=== PATIENT | female | born 1945 | race African-American/Black ===

== ENCOUNTER 2017-10-13 12:54 | Outpatient (CLI) | payer MEDICARE, MEDICAID ==
[2017-10-13] MEDS ORDERED: ISOVUE-370 76%-LOCM 1 ML ONE (16:11)
== END 2017-10-13 12:55 | disposition home or self-care (01) ==
LOC: BICCT 12:54
PROVIDERS: ATTEND Family Medicine
DX: R05 Cough (principal)
CPT/HCPCS: 71260

== ENCOUNTER 2018-02-06 13:47 | Outpatient (CLI) | payer MEDICARE, MEDICAID ==
[2018-02-06] MEDS ORDERED: ISOVUE-370 76%-LOCM 1 ML ONE (13:57)
== END 2018-02-06 13:48 | disposition home or self-care (01) ==
LOC: BICCT 13:47
PROVIDERS: ATTEND Family Medicine
DX: R63.4 Abnormal weight loss (principal); F17.200 Nicotine dependence, unspecified, uncomplicated; R53.83 Other fatigue; N28.1 Cyst of kidney, acquired; I70.0 Atherosclerosis of aorta; R93.421 Abnormal radiologic findings on diagnostic imaging of right kidney
CPT/HCPCS: 74178

== ENCOUNTER 2019-06-19 19:57 | Emergency (ER) | payer MEDICARE, MEDICAID ==
[2019-06-19 20:43] LABS: #Basophils 0.1 thou/uL (0.0-0.2); #Eosinphils 0.3 thou/uL (0.0-0.7); #Lymphocytes 2.4 thou/uL (1.20-3.40); #Monocytes 0.5 thou/uL (0.11-0.59); #Neutrophils 4.3 thou/uL (1.40-6.50); %Basophils 1.3 % (0.0-1.0); %Eosinophils 3.8 % (0.0-10.0); %Lymphocytes 31.7 % (21.0-51.0); %Monocytes 6.4 % (0.0-10.0); %Neutrophils 56.8 % (42.0-75.0); Hemoglobin 11.7 g/dL (12.0-16.0); Mean Corpuscular HGB CONC 35.3 g/dL (32.0-36.0); Mean Corpuscular Hemoglobin 29.8 pg (27.0-31.0); Mean Corpuscular Volume 84.5 fL (78.0-98.0); Mean Platelet Volume 8.3 fL (7.4-10.4); Platelet Count 306 thou/uL (130-400); RBC Distribution Width 12.4 % (11.5-14.5); Red Blood Cell (RBC) Count 3.91 mill/uL (4.20-5.40); White Blood Cell (WBC) Count 7.5 thou/uL (4.8-10.8)
--- NOTE | 2019-06-19 20:53 | RAD ---
PORTABLE CHEST: 06/19/19 HISTORY: Shortness of breath. COMPARISON: 04/21/17 study. Heart size is within normal limits. There are atherosclerotic changes of the aorta. The lungs are latonya ar of any infiltrative process. IMPRESSION: No active intrathoracic disease. POS: [facility]
[2019-06-19 21:05] LABS: ALT (SGPT) 7 U/L (8-55); AST (SGOT) 18 U/L (5-34); Albumin 4.1 g/dL (3.4-4.8); Alkaline Phosphatase 74 U/L (40-110); Anion Gap 18 mmol/L (10-20); BUN (Urea Nitrogen) 8 mg/dL (9.8-20.1); Bilirubin, Total 0.3 mg/dL (0.2-1.2); Calc. Creatinine Clearance 0 mL/min (70-130); Calcium 9.1 mg/dL (7.8-10.44); Carbon Dioxide 20 mmol/L (23-31); Chloride 106 mmol/L (98-107); Estimated GFR-MDRD 58; Globulin 3.3 g/dL (2.4-3.5); Glucose 120 mg/dL (83-110); Potassium 3.5 mmol/L (3.5-5.1); Protein, Total 7.4 g/dL (6.0-8.3); Sodium 140 mmol/L (136-145)
[2019-06-19] MEDS ORDERED: predniSONE 20 MG TAB ONE (21:13)
== END 2019-06-19 23:00 | disposition home or self-care (01) ==
LOC: ERS 19:57
DX: J44.1 Chronic obstructive pulmonary disease with (acute) exacerbation (principal); F17.210 Nicotine dependence, cigarettes, uncomplicated; I10 Essential (primary) hypertension; Z79.51 Long term (current) use of inhaled steroids; Z79.891 Long term (current) use of opiate analgesic; Z79.899 Other long term (current) drug therapy
CPT/HCPCS: 36415; 71045; 80053; 83880; 85025; 87804; 94640; J7512; J7620

== ENCOUNTER 2019-10-28 16:45 | Emergency (ER) | payer MEDICARE, MEDICAID ==
[2019-10-28 17:41] LABS: #Basophils 0.1 thou/uL (0.0-0.2); #Eosinphils 0.3 thou/uL (0.0-0.7); #Monocytes 0.5 thou/uL (0.11-0.59); #Neutrophils 3.8 thou/uL (1.40-6.50); %Eosinophils 3.9 % (0.0-10.0); %Lymphocytes 29.9 % (21.0-51.0); %Neutrophils 57.2 % (42.0-75.0); Hemoglobin 10.6 g/dL (12.0-16.0); Mean Corpuscular HGB CONC 33.4 g/dL (32.0-36.0); Mean Platelet Volume 7.3 fL (7.4-10.4); Platelet Count 564 thou/uL (130-400); RBC Distribution Width 13.1 % (11.5-14.5); Red Blood Cell (RBC) Count 3.67 mill/uL (4.20-5.40); White Blood Cell (WBC) Count 6.6 thou/uL (4.8-10.8)
[2019-10-28 17:51] LABS: Bacteria/HPF None Seen HPF (None Seen); Bilirubin Negative (Negative); Blood, Urine Negative (Negative); Clarity Clear (Clear); Glucose, Urine (Dipstick) Normal (Negative); Leukocyte 250 Leu/uL (Negative); Nitrite Negative (Negative); Protein, Urine (Dipstick) Negative (Neg-Trace); RBC/HPF 0-3 HPF (0-3); Squamous Epithelial 0-3 HPF (0-3); Urobilinogen Normal mg/dL (Less than 2); WBC/HPF 0-3 HPF (0-3)
[2019-10-28 17:59] LABS: ALT (SGPT) 12 U/L (8-55); AST (SGOT) 23 U/L (5-34); Albumin 3.7 g/dL (3.4-4.8); Alcohol 164 mg/dL (Less than 10); Alkaline Phosphatase 70 U/L (40-110); Anion Gap 16 mmol/L (10-20); BUN (Urea Nitrogen) 8 mg/dL (9.8-20.1); Bilirubin, Total 0.2 mg/dL (0.2-1.2); Calc. Creatinine Clearance 0 mL/min (70-130); Calcium 9.1 mg/dL (7.8-10.44); Carbon Dioxide 20 mmol/L (23-31); Chloride 104 mmol/L (98-107); Estimated GFR-MDRD 69; Globulin 3.8 g/dL (2.4-3.5); Glucose 89 mg/dL (83-110); Protein, Total 7.5 g/dL (6.0-8.3); Sodium 136 mmol/L (136-145)
[2019-10-28 18:01] LABS: Acetaminophen Less than 6.0 mcg/mL (10.0-30.0); Alcohol 162 mg/dL (Less than 10); CK (CPK) 105 U/L (29-168); Salicylate Less than 8.0 mg/dL (15.0-30.0)
[2019-10-28 18:05] LABS: Amphetamine Not Detected (NotDetected); Barbiturates Screen Not Detected (NotDetected); Benzodiazepine Screen Not Detected (NotDetected); Cocaine Metabolite Screen Not Detected (NotDetected); Medtox Reader # READER 4; Methadone Not Detected (NotDetected); Methamphetamine Not Detected (NotDetected); Opiate Screen Not Detected (NotDetected); Oxycodone Screen Not Detected (NotDetected); Phencyclidine (PCP) Not Detected (NotDetected); THC/Cannabinoid Screen Not Detected (NotDetected); Tricyclic Screen Not Detected (NotDetected)
[2019-10-28 18:06] LABS: Medtox Control Line Valid? VALID (VALID)
--- NOTE | 2019-10-28 18:12 | CT ---
CT BRAIN WITHOUT CONTRAST: History: Altered mental status. Comparison: 04-21-17 FINDINGS: Mild microvascular ischemic change in the subcortical and deep white matter. No hemorrhage. No infarc t. No midline shift or mass effect. Calvarium is intact. Paranasal sinuses and mastoids are clear. IMPRESSION: No acute intracranial abnormality. POS: HOME
--- NOTE | 2019-11-07 16:50 | EKG ---
Test Reason : EMERGENCY EXAM Blood Pressure : / mmHG Vent. Rate : 065 BPM Atrial Rate : 065 BPM P-R Int : 190 ms QRS Dur : 078 ms QT Int : 412 ms P-R-T Axes : 064 018 048 degrees QTc Int : 428 ms Normal sinus rhythm Septal infarct , age undetermined Abnormal ECG Confirmed by DORA ALARCON, MARIANO ([id number]), editor house organ DARRELL CAMPOS ([id number]) on 11/07/2019 4:49:29 PM Referred By: Confirmed By:MARIANO JOHN MD
== END 2019-10-29 00:58 | disposition home or self-care (01) ==
LOC: ERS 16:45
DX: F10.129 Alcohol abuse with intoxication, unspecified (principal); I10 Essential (primary) hypertension; J44.9 Chronic obstructive pulmonary disease, unspecified; K21.9 Gastro-esophageal reflux disease without esophagitis; F17.210 Nicotine dependence, cigarettes, uncomplicated; Z79.899 Other long term (current) drug therapy
CPT/HCPCS: 36415; 70450; 80053; 80306; 80307; 81003; 81015; 82550; 84443; 84484; 85025; 93005

== ENCOUNTER 2020-03-26 21:21 | Emergency (ER) | payer MEDICARE, OTHER ==
[2020-03-26 22:08] LABS: #Basophils 0.1 thou/uL (0.0-0.2); #Eosinphils 0.3 thou/uL (0.0-0.7); #Lymphocytes 2.5 thou/uL (1.20-3.40); #Monocytes 0.6 thou/uL (0.11-0.59); #Neutrophils 5.3 thou/uL (1.40-6.50); %Basophils 1.6 % (0.0-1.0); %Eosinophils 3.7 % (0.0-10.0); %Lymphocytes 27.9 % (21.0-51.0); %Monocytes 6.9 % (0.0-10.0); Hemoglobin 11.9 g/dL (12.0-16.0); Mean Corpuscular HGB CONC 34.8 g/dL (32.0-36.0); Mean Corpuscular Volume 86.3 fL (78.0-98.0); Platelet Count 357 thou/uL (130-400); RBC Distribution Width 12.6 % (11.5-14.5); Red Blood Cell (RBC) Count 3.96 mill/uL (4.20-5.40); White Blood Cell (WBC) Count 8.8 thou/uL (4.8-10.8)
[2020-03-26] MEDS ORDERED: Albuterol 200 PUFF (6.7GM INHALER) ONE (22:10)
[2020-03-26] MEDS ORDERED: Magnesium 2 GM/50 ML BAG (IN WATER) ONE (22:14)
[2020-03-26] MEDS ORDERED: Dexamethasone 4 mg/ml Vial ONE (22:15)
--- NOTE | 2020-03-26 22:25 | RAD ---
XR Chest 1 View Portable HISTORY: Shortness of breath COMPARISON: 06/19/2019 FINDINGS: The heart size is normal. The aorta is tortuous The lungs are well expanded without focal a reas of consolidation, pneumothorax or pleural effusions. IMPRESSION: No radiographic evidence of acute cardiopulmonary process.
[2020-03-26 22:31] LABS: ALT (SGPT) 10 U/L (8-55); AST (SGOT) 21 U/L (5-34); Albumin 4.2 g/dL (3.4-4.8); Alkaline Phosphatase 66 U/L (40-110); Anion Gap 15 mmol/L (10-20); BUN (Urea Nitrogen) 10 mg/dL (9.8-20.1); Bilirubin, Total 0.3 mg/dL (0.2-1.2); CK (CPK) 132 U/L (29-168); Calc. Creatinine Clearance 0 mL/min (70-130); Calcium 8.9 mg/dL (7.8-10.44); Carbon Dioxide 22 mmol/L (23-31); Chloride 99 mmol/L (98-107); Estimated GFR-MDRD 78; Globulin 3.7 g/dL (2.4-3.5); Glucose 83 mg/dL (83-110); Potassium 3.9 mmol/L (3.5-5.1); Protein, Total 7.9 g/dL (6.0-8.3); Sodium 132 mmol/L (136-145)
[2020-03-26] MEDS ORDERED: Aspirin 325 MG TAB ONE (23:13)
[2020-03-26] MEDS ORDERED: Azithromycin 250 MG TAB ONE (23:28)
[2020-03-27 11:40] LABS: SARS-CoV-2 MS2 Positive; SARS-CoV-2 N Gene Negative; SARS-CoV-2 S Gene Negative; SARS-CoV-2 by NAA Not Detected (NotDetected); SARS-CoV-2 orf1ab Negative
== END 2020-03-27 00:25 | disposition home or self-care (01) ==
LOC: ERS 21:21
DX: J44.1 Chronic obstructive pulmonary disease with (acute) exacerbation (principal); Z20.828 Contact with and (suspected) exposure to other viral communicable diseases; I10 Essential (primary) hypertension; M10.9 Gout, unspecified; F17.210 Nicotine dependence, cigarettes, uncomplicated; Z79.51 Long term (current) use of inhaled steroids; Z79.899 Other long term (current) drug therapy
CPT/HCPCS: 71045; 80053; 82550; 83605; 83880; 84484; 85025; 87040; 87149; 93005; 94664; 96365; 96375; 99285; U0003; 36415; 87635; J1100; J3475